=== PATIENT | female | born 1985 | race Caucasian/White ===

== ENCOUNTER 2019-09-22 12:47 | Emergency (ER) | payer OTHER | END 2019-09-22 17:23 | disposition home or self-care (01) | LOC: M.ERS 12:47 | DX: F41.9 Anxiety disorder, unspecified (principal); E83.42 Hypomagnesemia; R07.89 Other chest pain; I10 Essential (primary) hypertension; E78.5 Hyperlipidemia, unspecified; E66.9 Obesity, unspecified; J45.909 Unspecified asthma, uncomplicated; Z68.41 Body mass index [BMI] 40.0-44.9, adult; Z88.8 Allergy status to other drugs, medicaments and biological substances ==

== ENCOUNTER 2020-03-31 11:23 | Emergency (ER) | payer OTHER ==
[~2020-03-31] VITALS: Ht 165.1 cm; Wt 108.9 kg
[~2020-03-31 11:23] MED LIST: ALBUTEROL INHAL17 GM IH; ALBUTEROL SULF8.5 GM; ATIVAN0.5 M1 PO; AZITHROMYCIN 2250 MG PO; DARVOCET-N 1001 EACH PO; ERYTHROMYCIN250 MG PO; FLEXERIL PO; LEXAPRO 10 MG T10 M1 PO; LIORESAL 10 MG10 MG PO; LISINOPRIL10 MG PO; LISINOPRIL2.5 MG PO; MEDROL DOSPAK21 TAB PO; NAPROSYN500 MG PO; PENICILLIN VK500 M1 PO; PERCOCET 5-3251 EACH PO; PREDNISONE 10 M10 M1 PO; PREDNISONE 20 M20 M1 PO; PROAIR HFA8.5 GM IH; PROAIR HFA8.5 GM INH; ROBITUSSIN100 MG/53 PO; TESSALON PERLE100 MG PO; ULTRAM 50MG TAB50 MG PO; VENTOLIN HFA 1818 GM INH; VENTOLIN HFA INH8 GM INH; ZPAK PO
[2020-03-31 12:57] LABS: ABSOLUTE BASOPHILS 0.1 thou/uL (0.0-0.2); ABSOLUTE EOSINOPHILS 0.1 thou/uL (0.0-0.7); ABSOLUTE LYMPHOCYTES 1.5 thou/uL (0.8-5.3); ABSOLUTE MONOCYTES 0.4 thou/uL (0.0-1.2); ABSOLUTE NEUTROPHILS 4.4 thou/uL (1.6-8.1); EOSINOPHILS 1.4 %; HEMATOCRIT 40.1 % (37.0-47.0); HEMOGLOBIN 13.5 gm/dL (12.0-15.0); LYMPHOCYTES 23.4 %; MCHC 33.7 g/dL (28.0-37.0); MONOCYTES 6.7 %; NUCLEATED RBCS 0 /100WBC; PLATELET COUNT* 307 thou/uL (150-400); POLYS 67.5 %; RBC 5.01 mil/uL (4.20-5.00); RDW-CV 14.1 % (10.5-14.5); WBC 6.6 thou/uL (4.0-11.0)
[2020-03-31 13:06] LABS: CALCIUM 8.9 mg/dL (8.5-10.1); CREATININE 0.7 mg/dL (0.6-1.3)
[2020-03-31 13:09] LABS: APTT 29.2 Seconds (25.0-31.3); PROTIME 10.3 Seconds (9.20-11.50)
[2020-03-31 13:10] LABS: ALBUMIN 3.9 g/dL (3.4-5.0); TOTAL BILIRUBIN 0.3 mg/dL (<0.1-1.0); TOTAL PROTEIN 7.5 g/dL (6.4-8.2)
[2020-03-31 13:12] LABS: URINE BILIRUBIN NEGATIVE (Negative); URINE BLOOD 3+ (Negative); URINE CLARITY CLEAR; URINE COLOR YELLOW; URINE GLUCOSE-RANDOM NEGATIVE (Negative); URINE KETONES NEGATIVE (Negative); URINE LEUKOCYTES-REFLEX TRACE (Negative); URINE NITRITE-REFLEX NEGATIVE (Negative); URINE PROTEIN NEGATIVE (Negative); URINE SPECIFIC GRAVITY >= 1.030 (1.005-1.030); URINE UROBILINOGEN 0.2 E.U./dl (0.2-1.0)
[2020-03-31 13:29] LABS: BACTERIA-REFLEX 1-9 Few /HPF (None Seen); CASTS None Seen /LPF (None Seen); CRYSTALS None Seen /LPF (None Seen); MUCUS None Seen strn/LPF (None Seen); SQUAMOUS 4-10 Moderate /LPF (0-3); URINE WBC-REFLEX 0-5 Rare /HPF (0-5)
[2020-03-31 17:08] VITALS: BP 162/102
== END 2020-03-31 17:10 | disposition home or self-care (01) ==
LOC: M.ERS 11:23
PROVIDERS: Nurse Practitioner Family
DX: I10 Essential (primary) hypertension (principal); N93.9 Abnormal uterine and vaginal bleeding, unspecified; E78.5 Hyperlipidemia, unspecified; E66.9 Obesity, unspecified; Z68.39 Body mass index [BMI] 39.0-39.9, adult; Z98.51 Tubal ligation status; Z98.890 Other specified postprocedural states; Z91.041 Radiographic dye allergy status

== ENCOUNTER 2020-09-14 14:42 | Emergency (ER) | payer OTHER ==
[~2020-09-14] VITALS: Ht 165.1 cm; Wt 108.9 kg
[2020-09-14 16:18] VITALS: BP 148/90
[2020-09-14] MEDS ORDERED: IBUPROFEN 600600 M1 PO (16:36)
== END 2020-09-14 16:20 | disposition home or self-care (01) ==
LOC: M.ERS 14:42
DX: S82.61XA Displaced fracture of lateral malleolus of right fibula, initial encounter for closed fracture (principal); I10 Essential (primary) hypertension; Z98.51 Tubal ligation status; J45.909 Unspecified asthma, uncomplicated; Z98.890 Other specified postprocedural states; Y04.8XXA Assault by other bodily force, initial encounter; Y93.89 Activity, other specified; Y92.89 Other specified places as the place of occurrence of the external cause; Y99.8 Other external cause status